=== PATIENT | female | born 1980 | race Caucasian/White ===

== ENCOUNTER → 2017-12-13 | Outpatient (CLI) | payer OTHER ==
[2017-12-13 09:10] LABS: Basophils # (A) 0.1 k/uL (0-0.2); Basophils % (A) 1 %; Eosinophils # (A) 0.2 k/uL (0-0.7); Eosinophils % (A) 2 %; HCT 41.4 % (34.0-46.0); HGB 13.5 gm/dL (11.4-16.0); Lymphocytes # (A) 1.5 k/uL (1.0-4.8); Lymphocytes % (A) 19 %; MCH 28.5 pg (25.0-35.0); MCHC 32.6 g/dL (31.0-37.0); MCV 87.4 fL (80.0-100.0); Mean Platelet Volume 7.3; Monocytes # (A) 0.4 k/uL (0-1.0); Monocytes % (A) 5 %; Neutrophils # (A) 5.8 k/uL (1.3-7.7); Neutrophils % (A) 72 %; Platelet Count 256 k/uL (150-450); RBC 4.73 m/uL (3.80-5.40); RDW 13.1 % (11.5-15.5)
[2017-12-13 17:08] LABS: ALT 20 U/L (8-44); AST 22 U/L (13-35); Albumin/Globulin Ratio 2.15 (1.20-2.10); Alkaline Phosphatase 58 U/L (41-126); Calcium 9.7 mg/dL (8.7-10.3); Carbon Dioxide 29.4 mmol/L (21.6-31.8); Chloride 104 mmol/L (96-109); Cholesterol 161 mg/dL (0-200); Glucose 88 mg/dL (70-110); Sodium 139 mmol/L (135-145); Total Bilirubin 0.4 mg/dL (0.3-1.2); Total Protein 6.3 g/dL (6.2-8.2); Triglycerides <50.0 mg/dL (0.0-149.0); VLDL Calculation 9.98 mg/dL (5.00-40.00)
[2017-12-13 20:10] LABS: Hemoglobin A1C 5.9 % (4.0-6.0)
== END ==
LOC: LABWHC1 08:44
PROVIDERS: ATTEND Family Medicine
DX: Z00.00 Encounter for general adult medical examination without abnormal findings (principal); F32.9 Major depressive disorder, single episode, unspecified; E66.01 Morbid (severe) obesity due to excess calories; R20.2 Paresthesia of skin; Z68.41 Body mass index [BMI] 40.0-44.9, adult
CPT/HCPCS: 36415; 80053; 80061; 82607; 83036; 83655; 84443; 85025

== ENCOUNTER → 2018-02-23 | Outpatient (CLI) | payer OTHER ==
--- NOTE | 2018-02-23 19:24 | MR ---
MR brain without contrast HISTORY: Numbness in arms and hands, paresthesia skin Multiplanar multisequence imaging through the brain Patient refused contrast material. Fast brain protocol due to patient's claustrophobia. There is no restricted diffusion. Mild asymmetry in the lateral ventricles is felt likely to be anabel l variant. Corpus callosum, pituitary, cervical medullary junction are within normal limits. Approxim ately 3-5 hyperintensities are present within the deep white matter on inversion recovery T2-weighted sequences, the largest on axial image 16 in the right frontal lobe measures approximately 3 to 4 mm. There is no hemorrhage or hydrocephalus. Orbits show symmetric appearance. There are normal vascular flow voids. Inflammatory changes are present in the left maxillary sinus. Inflammatory change also p resent in the right mastoid air cells. IMPRESSION: Nonspecific foci of demyelination in the white matter, consider hypertension, migraine he adaches, vasculitis. Nonspecific inflammatory change right mastoid air cells, maxillary sinus. Limita tions as described.
== END ==
LOC: RADMRIMAIN 18:12
PROVIDERS: ATTEND Psychiatry & Neurology Neurology
DX: R90.89 Other abnormal findings on diagnostic imaging of central nervous system (principal); R20.2 Paresthesia of skin
CPT/HCPCS: 70551

== ENCOUNTER → 2018-05-06 | Outpatient (CLI) | payer OTHER ==
[2018-05-06 17:37] LABS: Basophils # (A) 0.1 k/uL (0-0.2); Basophils % (A) 1 %; Eosinophils # (A) 0.2 k/uL (0-0.7); Eosinophils % (A) 2 %; HCT 40.5 % (34.0-46.0); Lymphocytes # (A) 2.2 k/uL (1.0-4.8); Lymphocytes % (A) 21 %; MCH 28.3 pg (25.0-35.0); MCHC 32.1 g/dL (31.0-37.0); Mean Platelet Volume 7.2; Monocytes # (A) 0.6 k/uL (0-1.0); Monocytes % (A) 5 %; Neutrophils # (A) 7.3 k/uL (1.3-7.7); Neutrophils % (A) 70 %; Platelet Count 306 k/uL (150-450); RDW 13.8 % (11.5-15.5); WBC 10.5 k/uL (3.8-10.6)
[2018-05-06 17:39] LABS: Appearance,Urine Clear (Clear); Bilirubin,Urine Negative (Negative); Blood,Urine Negative (Negative); Color,Urine Yellow; Glucose,Urine (UA) Negative (Negative); Ketones,Urine Negative (Negative); Leukocyte Esterase,Urine Negative (Negative); Nitrite,Urine Negative (Negative); Protein,Urine Negative (Negative); Specific Gravity,Urine 1.019 (1.001-1.035); Urobilinogen,Urine <2.0 mg/dL (<2.0)
[2018-05-06 17:42] LABS: Anion Gap 7 mmol/L; Blood Urea Nitrogen 13 mg/dL (7-17); Calcium 9.6 mg/dL (8.4-10.2); Carbon Dioxide 28 mmol/L (22-30); Chloride 105 mmol/L (98-107); Glucose 82 mg/dL (74-99); Potassium 4.4 mmol/L (3.5-5.1); Sodium 140 mmol/L (137-145)
== END | disposition home or self-care (01) ==
LOC: LABPAT 15:55
PROVIDERS: ATTEND Urology
DX: Z01.812 Encounter for preprocedural laboratory examination (principal); N39.3 Stress incontinence (female) (male); R35.0 Frequency of micturition; Z79.899 Other long term (current) drug therapy
CPT/HCPCS: 80048; 81003; 85025; 87086

== ENCOUNTER 2018-05-13 08:54 | Day surgery (SDC) | payer OTHER ==
--- NOTE | 2018-05-12 21:21 | P.GSHP ---
History of Present Illness H&P Date: 05/12/18 38 yo female sent to me by Dr Montana for evaluation of a several year history of incontinence The incontinence is mixed with a predominant stress component She classically leaks with cough , lift sneeze and activity. She kleaked on examination with valsalva. Her uds a smaller than normal bladder capacity and lpp of 111 and 136 cm h2o. We discussed treatment options. We have decided on TOT. The risks and complications including the mesh controversy have been discussed She comes for TOT - Constitutional Constitutional: Denies chills, Denies fever - EENT Eyes: denies blurred vision, denies pain Ears, nose, mouth and throat: Denies headache, Denies sore throat - Cardiovascular Cardiovascular: Denies chest pain, Denies shortness of breath - Respiratory Respiratory: Denies cough, Denies 7 - Gastrointestinal Gastrointestinal: Denies abdominal pain, Denies diarrhea, Denies nausea, Denies vomiting - Genitourinary (Female) Genitourinary: Denies dysuria, Denies hematuria - Genitourinary (Male) Genitourinary: Denies dysuria, Denies hematuria - Musculoskeletal Musculoskeletal: Denies myalgias - Integumentary Integumentary: Denies pruritus, Denies rash - Neurological Neurological: Denies numbness, Denies weakness - Psychiatric Psychiatric: Denies anxiety, Denies depression - Endocrine Endocrine: Denies fatigue, Denies weight change Past Medical History Past Medical History: Deep Vein Thrombosis (DVT), Neurologic Disorder, Sleep Apnea/CPAP/BIPAP Additional Past Medical History / Comment(s): shima DVT, varicose veins, uses cpap, urinary leakage,rt arm carpal tunnel History of Any Multi-Drug Resistant Organisms: None Reported Past Surgical History: Cholecystectomy, Orthopedic Surgery, Tubal Ligation Additional Past Surgical History / Comment(s): rt knee surgery for torn meniscus Additional Past Anesthesia/Blood Transfusion Reaction / Comment(s): lt leg goes numb after anesthesia Smoking Status: Current every day smoker - Past Family History Mother Family Medical History: No Reported History Medications and Allergies Home Medications Medication Instructions Recorded Confirmed Type FLUoxetine HCL [PROzac] 10 mg PO DAILY 05/05/18 05/05/18 History Allergies Allergy/AdvReac Type Severity Reaction Status Date / Time No Known Allergies Allergy Verified 05/05/18 14:32 Surgical - Exam - General well developed, well nourished, no distress - Eyes PERRL - ENT no hearing loss - Neck trachea midline - Respiratory normal respiratory effort - Cardiovascular Rhythm: regular - Abdomen Abdomen: soft, non tender - Genitourinary positive urethral hypermobility, positive riley test normal external genitalia, normal perineum - Integumentary no rash, no growths - Neurologic normal coordination, normal sensation - Musculoskeletal normal gait, normal posture - Psychiatric oriented to time, oriented to person, oriented to place, speech is normal, memory intact Assessment and Plan Assessment: Impression: JUSTEN, urinary urgency Plan: TOT with cystoscopy
[~2018-05-13 08:54] MED LIST: ceFAZolin 1,000 MG in DEXTROSE/WATER 1 50ML.BAG IV ONE
[2018-05-13] MEDS ORDERED: LIDOCAINE 1% 20 ML VIAL (10MG/ML) FOR IV START INTRADERMA ONE (09:35)
[2018-05-13] MEDS ORDERED: LACTATED RINGERS 1,000 ML IV ONE (09:35)
[2018-05-13] MEDS ORDERED: ONDANSETRON 4 MG/2 ML VIAL IVP ONE (09:45)
[2018-05-13] MEDS ORDERED: DEXAMETHASONE SOD PHOSPHATE 10 MG/ML 1 ML VIAL IV ONE (09:46)
[2018-05-13] MEDS ORDERED: PROPOFOL 10 MG/ML 20 ML VIAL IV ONE (11:09)
[2018-05-13] MEDS ORDERED: fentaNYL (PF) 50 MCG/ML 2 ML AMP ONE (11:09)
[2018-05-13] MEDS ORDERED: MIDAZOLAM 2 MG/2 ML VIAL ONE (11:09)
[2018-05-13] MEDS ORDERED: SUCCINYLCHOLINE CHLORIDE 100 MG/5 ML SYR IV ONE (11:09)
[2018-05-13] MEDS ORDERED: LIDOCAINE 1% INJ 10MG/ML (20 ML MDV) ONE (11:09)
[2018-05-13] MEDS ORDERED: BACITRACIN 500 UNIT/GM OINT 28.4 GM TUBE TOPICAL ONE (11:35)
[2018-05-13] MEDS ORDERED: VASOPRESSIN 20 UNIT/ML 1 ML VIAL SQ ONE (11:35)
[2018-05-13] MEDS ORDERED: GENTAMICIN 80 MG in SODIUM CHLORIDE 0.9% 500 ML 500 ML IRRIGATION ONE (11:39)
[2018-05-13] MEDS ORDERED: ONDANSETRON 4 MG/2 ML VIAL IVP PRN (12:08)
--- NOTE | 2018-05-13 12:29 | P.OP ---
Date of Procedure: 05/13/18 Preoperative Diagnosis: stress urinary incontinence Postoperative Diagnosis: stress urinary incontinence Procedure(s) Performed: trans obturator tape with cystoscopy Anesthesia: GRUPO Surgeon: Nam Verduzco Estimated Blood Loss (ml): 100 Pathology: none sent Condition: stable Disposition: PACU Indications for Procedure: The patient 38 female with stress urinary incontinence who comes for TOT The risks and complication have been discussed. Description of Procedure: The patient is brought to the operating and was given a general anesthetic. She was placed in lithotomy position with a sterile prep and drape. The labia are sewn laterally with 2-0 silk. A brantley was placed steriley . A vaginal specula was placed. The anterior vaginal mucosa is elevated off the submucosa with 20mcg of pitressin in 200 mL of saline. A midline suburethral incision is made. I dissect lateral the bladder neck bilaterally. I then make incisions in the inguinal crease at the level of the clitoris bilaterally. I passed the trans- obturator introducers through this incision into the obturator foramen around the issue pubic ramus into the vaginal space bilaterally making sure not to buttonhole the vagina or injure the bladder. The Brantley is removed. Cystoscopy Foroblique lens and 23-Persian sheath was performed the urethra and bladder neck are normal is no evidence of either introducer into the bladder. I then attached the grafted introducers and pull the graft back through the obturator foramen. The graft sits in the mid urethra nicely. The redundant achieving is removed. Vaginal mucosa was closed with a running 3-0 Vicryl. The redundant sheathing at the inguinal incision is removed as is the redundant graft. The graft is an she's begins inguinal incisions are then closed with 3-0 Vicryl. I irrigate the catheter irrigates freely and clearly. Vaginal packing is placed. The labial stitches are closed with 4-0 Vicryl. The patient is awake and returned recovery room good condition. Blood loss is approximately 100 mL. The urine is clear upon arrival to recovery room. She tolerated procedure well. She'll be placed in the hospital overnight.
[2018-05-13 14:05] VITALS: BMI 47.8
[2018-05-13] MEDS: KETOROLAC 30 MG/ML 1 ML VIAL IVP PRN (16:35)
[2018-05-13] MEDS: DEXTROSE 5%-0.45% NACL 1,000 ML IV SCH (16:38)
[2018-05-14] MEDS: KETOROLAC 30 MG/ML 1 ML VIAL IVP PRN ×2 (02:45→09:31)
[2018-05-14] MEDS: DEXTROSE 5%-0.45% NACL 1,000 ML IV SCH (03:06)
[2018-05-14] MEDS: HYDROcodone/APAP 5-325MG 1 EACH TAB PO PRN ×2 (03:53→09:32)
[2018-05-14] MEDS ORDERED: FLUoxetine HCL 10 MG CAP PO SCH (09:00)
[2018-05-14 12:41] VITALS: BP 102/65; PULSE 68; RESP 14; TEMP 97.8
--- NOTE | 2018-05-14 12:45 | P.DS ---
Providers Attending physician: Nam Verduzco Primary care physician: Flori Montana MD Hospital Course: This pleasant 38-year-old female who was admitted to the hospital 05/13/2018 for a trans-obturator tape with cystoscopy for stress incontinence. Surgery was uneventful. Her postoperative care was uneventful. The packing has been removed. Catheters been removed she is voiding without difficulty. She is ambulating. She has a minimal amount of left groin discomfort. Her abdomen is soft. Postoperative instructions in the given. Diet is regular. Activities Limited. She'll follow-up in the office in one week. Condition is good. Patient Condition at Discharge: Good Plan - Discharge Summary Discharge Rx Participant: No New Discharge Prescriptions: No Action FLUoxetine HCL [PROzac] 10 mg PO DAILY Discharge Medication List FLUoxetine HCL [PROzac] 10 mg PO DAILY 05/05/18 [History] Follow up Appointment(s)/Referral(s): Nam Verduzco MD [STAFF PHYSICIAN] - 1 Week Discharge Disposition: HOME SELF-CARE
== END 2018-05-14 13:16 | disposition home or self-care (01) ==
LOC: OR 08:54 → 6PED 12:00 → OR 05-14 13:16
PROVIDERS: ATTEND Urology
DX: N39.3 Stress incontinence (female) (male) (principal); Z86.718 Personal history of other venous thrombosis and embolism; G47.33 Obstructive sleep apnea (adult) (pediatric); Z99.89 Dependence on other enabling machines and devices; K21.9 Gastro-esophageal reflux disease without esophagitis; F17.200 Nicotine dependence, unspecified, uncomplicated; Z79.899 Other long term (current) drug therapy
CPT/HCPCS: 81025; 57288; C1771; J2250; J1580; J1100; J2405; J2001; J3010; J1885 ×2; J0690; J0330; J2704

== ENCOUNTER 2018-05-25 18:33 | Emergency (ER) | payer OTHER ==
[2018-05-25 19:19] VITALS: TEMP 97.7
[2018-05-25 19:44] LABS: Basophils % (A) 0 %; Eosinophils # (A) 0.3 k/uL (0-0.7); Eosinophils % (A) 3 %; HCT 36.8 % (34.0-46.0); HGB 11.8 gm/dL (11.4-16.0); Lymphocytes # (A) 2.2 k/uL (1.0-4.8); Lymphocytes % (A) 21 %; MCH 27.3 pg (25.0-35.0); MCHC 32.1 g/dL (31.0-37.0); MCV 85.1 fL (80.0-100.0); Monocytes # (A) 0.4 k/uL (0-1.0); Monocytes % (A) 4 %; Neutrophils # (A) 7.2 k/uL (1.3-7.7); Neutrophils % (A) 70 %; Platelet Count 238 k/uL (150-450); RBC 4.32 m/uL (3.80-5.40); RDW 13.2 % (11.5-15.5); WBC 10.3 k/uL (3.8-10.6)
--- NOTE | 2018-05-25 19:45 | ED ---
General Adult HPI - General Source: patient Mode of arrival: ambulatory Limitations: no limitations <Sarah Pierce - Last Filed: 05/26/18 01:43> <Rebeca Ly - Last Filed: 05/26/18 07:33> - General Chief complaint: Shortness of Breath Stated complaint: NIKITA Time Seen by Provider: 05/25/18 19:03 - History of Present Illness Initial comments: 46-year-old female patient with past medical history significant for DVT with recent bladder sling surgery on 05/13/2018 presents to the emergency department today for evaluation of shortness of breath. Patient states she has been feeling like she is unable to catch her breath since having the surgery on the third. Patient states that she feels the discomfort to the mid upper back. She denies any cough or sputum production. Denies any fevers or chills with this. Patient denies any chest pain, tightness, or heaviness. States shortness of breath worsens with activity. She denies any calf or leg pain. Denies any leg swelling. Denies any history of COPD or asthma. Patient denies any recent rash, abdominal pain, nausea, vomiting, diarrhea, constipation, numbness, tingling, dizziness, weakness, hematuria, dysuria, urinary urgency, urinary frequency, headache, visual changes, or any other complaints. (Sarah Pierce) - Related Data Home Medications Medication Instructions Recorded Confirmed FLUoxetine HCL [PROzac] 10 mg PO DAILY 05/05/18 05/13/18 Previous Rx's Medication Instructions Recorded predniSONE 50 mg PO DAILY #5 tablet 05/25/18 Allergies Allergy/AdvReac Type Severity Reaction Status Date / Time No Known Allergies Allergy Verified 05/25/18 18:44 Review of Systems ROS Other: All systems not noted in ROS Statement are negative. <Sarah Pierce - Last Filed: 05/26/18 01:43> ROS Other: All systems not noted in ROS Statement are negative. <Rebeca Ly - Last Filed: 05/26/18 07:33> ROS Statement: Those systems with pertinent positive or pertinent negative responses have been documented in the HPI. Past Medical History Past Medical History: Deep Vein Thrombosis (DVT), Neurologic Disorder, Sleep Apnea/CPAP/BIPAP Additional Past Medical History / Comment(s): shima DVT, varicose veins, uses cpap, urinary leakage,rt arm carpal tunnel History of Any Multi-Drug Resistant Organisms: None Reported Past Surgical History: Cholecystectomy, Orthopedic Surgery, Tubal Ligation Additional Past Surgical History / Comment(s): rt knee surgery for torn meniscus, bladder suspension Additional Past Anesthesia/Blood Transfusion Reaction / Comment(s): lt leg goes numb after anesthesia Past Psychological History: Depression Smoking Status: Former smoker Past Alcohol Use History: Rare Past Drug Use History: None Reported - Past Family History Mother Family Medical History: No Reported History <Sarah Pierce - Last Filed: 05/26/18 01:43> General Exam Limitations: no limitations General appearance: alert, in no apparent distress, other (Physical well-deve loped, well-nourished adult female patient in no acute distress. Vital signs upon presentation are temperature 98.4F, pulse 70, respirations 18, blood pressure 150/63, pulse ox 98% on room air.) Eye exam: Present: normal appearance, PERRL, EOMI. Absent: scleral icterus, c onjunctival injection, periorbital swelling ENT exam: Present: normal exam, normal oropharynx, mucous membranes moist Respiratory exam: Present: normal lung sounds bilaterally. Absent: respiratory distress, wheezes, rales, rhonchi, stridor Cardiovascular Exam: Present: regular rate, normal rhythm, normal heart sounds. Absent: systolic murmur, diastolic murmur, rubs, gallop, clicks GI/Abdominal exam: Present: soft, normal bowel sounds. Absent: distended, tenderness, guarding, rebound, rigid Extremities exam: Present: normal inspection, full ROM, normal capillary refill. Absent: tenderness, pedal edema, joint swelling, calf tenderness Neurological exam: Present: alert, oriented X3, CN II-XII intact Psychiatric exam: Present: normal affect, normal mood Skin exam: Present: warm, dry, intact, normal color. Absent: rash <Sarah Pierce - Last Filed: 05/26/18 01:43> Course Vital Signs 05/25/18 05/25/18 05/25/18 18:41 19:18 20:27 Temperature 98.4 F 97.7 F Pulse Rate 70 71 80 Respiratory 18 18 18 Rate Blood Pressure 115/63 118/56 109/54 O2 Sat by Pulse 98 98 97 Oximetry 05/25/18 21:32 Temperature 97.7 F Pulse Rate 78 Respiratory 17 Rate Blood Pressure 106/57 O2 Sat by Pulse 98 Oximetry EKG Findings - EKG Comments: EKG Findings:: EKG obtained in 192 shows normal sinus rhythm with a ventricular rate of 71, NJ interval 144, QRS duration 78, QTC 400, QTC 434. No evidence of ST elevation or depression. <Sarah Pierce - Last Filed: 05/26/18 01:43> Medical Decision Making - Lab Data Result diagrams: 05/25/18 19:30 05/25/18 19:30 - Radiology Data Radiology results: report reviewed, image reviewed <Sarah Pierce - Last Filed: 05/26/18 01:43> - Lab Data Result diagrams: 05/25/18 19:30 05/25/18 19:30 <Rebeca Ly - Last Filed: 05/26/18 07:33> - Medical Decision Making 38-year-old female patient presents to the emergency department today for evaluation of shortness of breath. Patient underwent bladder sling surgery on 05/13/2018 and has been feeling short of breath ever since. Patient states it feels like she is not getting enough air. Lungs are clear to auscultation with good air movement. Patient's respirations are nonlabored. Vital signs are stable with satisfactory oxygen saturation. Chest x-ray showed no acute cardiopulmonary process. Labs reviewed and were unremarkable, BNP and d-dimer were negative. EKG showed normal sinus rhythm. I did discuss findings and results with the patient. We will give steroids for decreasing inflammation after intubation. She is instructed to follow-up with her primary care physician for recheck in 1-2 days. Return parameters were discussed in detail. She verbalizes understanding and agrees with this plan. (Sarah Pierce) I was available for consultation in the emergency department. The history and physical exam were done by the midlevel provider. I was consulted for this patient's care. I reviewed the case with the midlevel provider and based on their presentation of the patient, I agree with the assessment, medical decision making and plan of care as documented. (Rebeca Ly) - Lab Data Lab Results 05/25/18 05/25/18 05/25/18 Range/Units 19:30 19:30 19:30 WBC 10.3 (3.8-10.6) k/uL RBC 4.32 (3.80-5.40) m/uL Hgb 11.8 (11.4-16.0) gm/dL Hct 36.8 (34.0-46.0) % MCV 85.1 (80.0-100.0) fL MCH 27.3 (25.0-35.0) pg MCHC 32.1 (31.0-37.0) g/dL RDW 13.2 (11.5-15.5) % Plt Count 238 (150-450) k/uL Neutrophils % 70 % Lymphocytes % 21 % Monocytes % 4 % Eosinophils % 3 % Basophils % 0 % Neutrophils # 7.2 (1.3-7.7) k/uL Lymphocytes # 2.2 (1.0-4.8) k/uL Monocytes # 0.4 (0-1.0) k/uL Eosinophils # 0.3 (0-0.7) k/uL Basophils # 0.0 (0-0.2) k/uL PT 9.5 (9.0-12.0) sec INR 0.9 (<1.2) APTT 22.3 (22.0-30.0) sec D-Dimer 0.49 (<0.60) mg/L FEU Sodium 139 (137-145) mmol/L Potassium 4.2 (3.5-5.1) mmol/L Chloride 105 (98-107) mmol/L Carbon Dioxide 27 (22-30) mmol/L Anion Gap 7 mmol/L BUN 18 H (7-17) mg/dL Creatinine 0.79 (0.52-1.04) mg/dL Est GFR (CKD-EPI)AfAm >90 (>60 ml/min/1.73 sqM) Est GFR (CKD-EPI)NonAf >90 (>60 ml/min/1.73 sqM) Glucose 149 H (74-99) mg/dL Calcium 9.5 (8.4-10.2) mg/dL Total Bilirubin 0.3 (0.2-1.3) mg/dL AST 15 (14-36) U/L ALT 21 (9-52) U/L Alkaline Phosphatase 60 (38-126) U/L Troponin I (0.000-0.034) ng/mL NT-Pro-B Natriuret Pep pg/mL Total Protein 6.5 (6.3-8.2) g/dL Albumin 3.9 (3.5-5.0) g/dL 05/25/18 05/25/18 Range/Units 19:30 19:30 WBC (3.8-10.6) k/uL RBC (3.80-5.40) m/uL Hgb (11.4-16.0) gm/dL Hct (34.0-46.0) % MCV (80.0-100.0) fL MCH (25.0-35.0) pg MCHC (31.0-37.0) g/dL RDW (11.5-15.5) % Plt Count (150-450) k/uL Neutrophils % % Lymphocytes % % Monocytes % % Eosinophils % % Basophils % % Neutrophils # (1.3-7.7) k/uL Lymphocytes # (1.0-4.8) k/uL Monocytes # (0-1.0) k/uL Eosinophils # (0-0.7) k/uL Basophils # (0-0.2) k/uL PT (9.0-12.0) sec INR (<1.2) APTT (22.0-30.0) sec D-Dimer (<0.60) mg/L FEU Sodium (137-145) mmol/L Potassium (3.5-5.1) mmol/L Chloride (98-107) mmol/L Carbon Dioxide (22-30) mmol/L Anion Gap mmol/L BUN (7-17) mg/dL Creatinine (0.52-1.04) mg/dL Est GFR (CKD-EPI)AfAm (>60 ml/min/1.73 sqM) Est GFR (CKD-EPI)NonAf (>60 ml/min/1.73 sqM) Glucose (74-99) mg/dL Calcium (8.4-10.2) mg/dL Total Bilirubin (0.2-1.3) mg/dL AST (14-36) U/L ALT (9-52) U/L Alkaline Phosphatase (38-126) U/L Troponin I <0.012 (0.000-0.034) ng/mL NT-Pro-B Natriuret Pep 27 pg/mL Total Protein (6.3-8.2) g/dL Albumin (3.5-5.0) g/dL - Radiology Data Two-view x-ray of the chest is obtained. Report was reviewed in its entirety. Impression by Dr. Frank shows no suspicious acute cardiopulmonary process. (Sarah Pierce) Disposition Is patient prescribed a controlled substance at d/c from ED?: No Time of Disposition: 21:25 <Sarah Pierce - Last Filed: 05/26/18 01:43> <Rebeca Ly - Last Filed: 05/26/18 07:33> Clinical Impression: Shortness of breath Disposition: HOME SELF-CARE Condition: Good Instructions (If sedation given, give patient instructions): Shortness of Breath (ED) Additional Instructions: Follow-up with the primary care physician for recheck in 1-2 days. Use medications as directed. Return to the emergency department immediately for any new, worsening, or concerning symptoms. Prescriptions: predniSONE 50 mg PO DAILY #5 tablet Referrals: Flori Montana MD [Primary Care Provider] - 1-2 days
[2018-05-25 19:52] LABS: ALT 21 U/L (9-52); AST 15 U/L (14-36); Albumin 3.9 g/dL (3.5-5.0); Alkaline Phosphatase 60 U/L (38-126); Anion Gap 7 mmol/L; Blood Urea Nitrogen 18 mg/dL (7-17); Calcium 9.5 mg/dL (8.4-10.2); Carbon Dioxide 27 mmol/L (22-30); Chloride 105 mmol/L (98-107); Glucose 149 mg/dL (74-99); Potassium 4.2 mmol/L (3.5-5.1); Sodium 139 mmol/L (137-145); Total Bilirubin 0.3 mg/dL (0.2-1.3); Total Protein 6.5 g/dL (6.3-8.2)
[2018-05-25 20:05] LABS: D-Dimer 0.49 mg/L FEU (<0.60); INR 0.9 (<1.2); Partial Thromboplastin Time 22.3 sec (22.0-30.0); Prothrombin Time 9.5 sec (9.0-12.0)
--- NOTE | 2018-05-25 20:51 | XR ---
EXAMINATION TYPE: XR chest 2V DATE OF EXAM: 05/25/2018 COMPARISON: NONE HISTORY: History of recent bladder surgery May 13 with increasing shortness of breath. TECHNIQUE: Frontal and lateral views of the chest are obtained. FINDINGS: Overlying EKG leads are present. There is no focal air space opacity, pleural effusion, or pneumothorax seen. The cardiac silhouette size is within normal limits. The osseous structures ar e intact. Cholecystectomy clips are noted on lateral view. IMPRESSION: No suspicious acute cardiopulmonary process.
[2018-05-25 21:33] VITALS: BP 106/57; PULSE 78; RESP 17
== END 2018-05-25 21:34 | disposition home or self-care (01) ==
LOC: EC 18:33
DX: R06.02 Shortness of breath (principal); Z98.890 Other specified postprocedural states; G47.30 Sleep apnea, unspecified; F32.9 Major depressive disorder, single episode, unspecified; Z79.899 Other long term (current) drug therapy; Z86.718 Personal history of other venous thrombosis and embolism; Z87.891 Personal history of nicotine dependence
CPT/HCPCS: 36415; 71046; 80053; 83880; 84484; 85025; 85379; 85610; 85730; 93005; 99285

== ENCOUNTER → 2018-06-04 | Outpatient (CLI) | payer OTHER ==
--- NOTE | 2018-06-04 18:41 | PN ---
PROGRESS NOTE DATE OF SERVICE: 06/04/2018 This patient is a 38-year-old lady who has been [facility] for treatment of obstructive sleep apnea-hypopnea syndrome. Recently the patient had a diagnostic polysomnogram which showed severe sleep apnea and then CPAP titration was done for correction of respiratory abnormalities. Subsequently the patient received her CPAP unit. I discussed results of the sleep studies with the patient in detail. She is able to use CPAP equipment every night. She does not snore with the CPAP. She feels better during the day. [place] Sleepiness Scale today is 12; she still feels sometimes sleepiness, which depends on the number of hours of her sleep during the previous night. But generally her sleepiness is less. I checked her CPAP unit. Usage is 100% of nights for more than 4 hours. Average usage is 7.3 hours. Leak is 20 L/minute, which is borderline. Pressure is in the range of 8 to 19, and most of the time the pressure is 14.6. Apnea-hypopnea index is only 1.2, which is absolutely perfect. MEDICATION: Fluoxetine. PHYSICAL EXAMINATION: GENERAL: A pleasant patient in no distress. VITAL SIGNS: BP 136/86, HR 76, RR 16, weight 290, temperature 97.6, oxygen saturation on room air 98%. HEENT: PERRLA, EOMI. Evaluation of oropharynx showed tongue protrudes midline. Low position of soft palate. Mallampati IV. NECK: Supple. No JVD. Thyroid is not palpable. LUNGS: Clear to percussion and to auscultation. Good air exchange. No wheezing or rhonchi. HEART: S1, S2 regular. No murmurs, gallops or rubs. ABDOMEN: Obese. EXTREMITIES: No clubbing or cyanosis. ELECTRIC FRYING PAN REPAIRER: Awake, alert, and oriented X3. Cranial nerves 2 to 7 intact. There is no fasciculation or atrophy. noted. No focal deficits observed. IMPRESSION: 1. Severe obstructive sleep apnea-hypopnea syndrome, apnea-hypopnea index 81.7 with oxygen saturation to 70.9%, fully controlled with CPAP. Patient demonstrated 100% compliance with treatment, benefitting from treatment. 2. Obesity. 3. Status post cholecystectomy. 4. Status post knee surgery for meniscus problems. 5. Status post tubal ligation. PLAN: 1. Patient will continue to use CPAP equipment every night for the whole night. 2. Losing weight. 3. Sleep hygiene with regular time in bed for at least 8 hours. 4. No driving if feeling any sleepiness. 5. We will maintain all necessary prescriptions for CPAP supplies, including mask, tube, filters. Thank you very much for allowing me to participate in the management of your patient. Sincerely, Kojo Gomez MD, PhD, FAASM Diplomat of [employer] [employer] [facility] [place] MMODL / NELLYN: [phone] /
== END ==
LOC: SLEEP 15:58
PROVIDERS: ATTEND Internal Medicine
DX: G47.33 Obstructive sleep apnea (adult) (pediatric) (principal); E66.9 Obesity, unspecified; Z90.49 Acquired absence of other specified parts of digestive tract; Z98.890 Other specified postprocedural states; Z98.51 Tubal ligation status; Z99.89 Dependence on other enabling machines and devices; Z79.899 Other long term (current) drug therapy

== ENCOUNTER → 2018-06-09 | Outpatient (CLI) | payer OTHER ==
--- NOTE | 2018-06-09 09:48 | CT ---
EXAMINATION TYPE: CT angio chest DATE OF EXAM: 06/09/2018 COMPARISON: Chest radiograph 05/25/2018 HISTORY: 38-year-old female Shortness of breath, dyspnea since bladder surgery last Friday TECHNIQUE: Contiguous axial scanning of the chest performed with IV Contrast, patient injected with 1 00 mL of Isovue 300. Coronal/sagittal MIP reconstructions performed. CT DLP: 1520 mGycm Automated exposure control for dose reduction was used. FINDINGS: Heart upper limits of normal in size without pericardial effusion. No flattening of the interventricu lar septum or reflux of contrast hepatic veins. Aorta normal caliber with bovine configuration to the aortic arch. Borderline optimal opacification of the pulmonary arterial system. Exam is limited due to mild respir atory motion artifact. No definite pulmonary embolus is seen. No thoracic lymphadenopathy. Mild bronchial wall thickening is demonstrated and mild emphysematous change. 7 mm subpleural pulmonary nodule posterior left upper lobe and a couple 3 mm pulmonary nodules left u pper lobe, axial image 69 and lateral right middle lobe, axial image 126. Some scattered strandy areas of atelectasis are present. No consolidation or pleural effusion. Mixing artifact in the main portal vein. Cholecystectomy clips are present. Bones: No osseous destructive process. IMPRESSION: 1. MILD BREATHING ARTIFACT. NO DEFINITE PULMONARY EMBOLUS. 2. COPD WITH MILD EMPHYSEMA. CORRELATE FOR SMOKING HISTORY. 3. MILD BRONCHIAL WALL THICKENING COULD REFLECT BRONCHITIS OR ASTHMA. SOME STRANDY AREAS OF ATELECTAS IS ARE PRESENT. 4. A FEW PULMONARY NODULES, LARGEST MEASURING 7 MM. [address] FOLLOW-UP CT RECOMMENDED TO REASSESS.
== END | disposition home or self-care (01) ==
LOC: RADCTMAIN 08:39
PROVIDERS: ATTEND Family Medicine
DX: J43.9 Emphysema, unspecified (principal); R91.8 Other nonspecific abnormal finding of lung field; Z86.718 Personal history of other venous thrombosis and embolism
CPT/HCPCS: 71275; Q9967

== ENCOUNTER → 2018-07-27 | Outpatient (CLI) | payer OTHER | END | disposition home or self-care (01) | LOC: LABWHC1 13:44 | PROVIDERS: ATTEND Internal Medicine Critical Care Medicine | DX: J45.909 Unspecified asthma, uncomplicated (principal) | CPT/HCPCS: 36415; 82785; 85008 ==

== ENCOUNTER → 2018-12-14 | Outpatient (CLI) | payer OTHER ==
--- NOTE | 2018-12-14 10:44 | CT ---
EXAMINATION TYPE: CT chest w con DATE OF EXAM: 12/14/2018 COMPARISON: 06/09/2018 HISTORY: 38-year-old female with dyspnea, tobacco use, Pulmonary Nodules TECHNIQUE: Contiguous axial scanning of the chest after the administration of 100 mL of Isovue 300. Coronal/sagittal reconstructions performed. CT DLP: 804mGycm. Automatic exposure control utilized for a dose reduction. FINDINGS: Heart normal size without pericardial effusion. Aorta normal caliber with conventional vessel branching anatomy. No thoracic lymphadenopathy by CT size criteria. 7 mm peripheral left midlung pulmonary nodule, axial image 23 is stable over the course of 6 months. Additional 6-12 month follow-up exam is recommended. Tiny 2 to 3 mm pulmonary nodule just anteriorly in the lingula also remain stable. No consolidation or pleural effusion. Suspect underlying fatty infiltration of the liver. Status post cholecystectomy. Bones: No osseous destructive process. IMPRESSION: 1. A 7 mm left midlung pulmonary nodule remains stable for 6 months. Continued follow-up with a 12-18 month follow-up exam is recommended. 2. No acute pulmonary process.
== END | disposition home or self-care (01) ==
LOC: RADCTMAIN 08:54
PROVIDERS: ATTEND Family Medicine
DX: R91.1 Solitary pulmonary nodule (principal); R06.00 Dyspnea, unspecified; Z72.0 Tobacco use
CPT/HCPCS: 71260; Q9967

== ENCOUNTER → 2019-03-25 | Outpatient (CLI) | payer OTHER ==
--- NOTE | 2019-03-25 17:19 | PN ---
PROGRESS NOTE DATE OF SERVICE: 03/25/2019 This patient is a 39-year-old lady who has been followed in Sleep Center for treatment of obstructive sleep apnea-hypopnea syndrome. The patient successfully continues to use her CPAP equipment every night for the whole night without problems related to mask fitting, pressure or humidification. [place] Sleepiness Scale today is 13, which is slightly above normal range. Sometimes she feels sleepiness. I checked her CPAP unit. Range of the pressure is 8 to 19, with average pressure 13.9. For the last 6 months, out of 180 nights the patient used it 180 nights more than 4 hours, with average usage is 7.9 hours per night. Leak is 23 L/minute, which is borderline. Apnea-hypopnea index for the last 6 months is only 1.3, which is totally perfect. MEDICATIONS: Fluoxetine, Singulair. PHYSICAL EXAMINATION: GENERAL: A pleasant lady without distress. VITAL SIGNS: BP 127/64, HR 84, RR 16, height 5 feet 7 inches, weight 297.2, which is about 7 pounds more than during the previous visit about 10 months ago. Temperature 97.9, oxygen saturation at room air 96%. HEENT: PERRLA, EOMI. Evaluation of oropharynx showed tongue protrudes midline. Extremely low position of soft palate. Mallampati IV. NECK: Supple. No JVD. Thyroid is not palpable. LUNGS: Clear to percussion and to auscultation. Good air exchange. No wheezing or rhonchi. HEART: S1, S2 regular. No murmurs, gallops or rubs. ABDOMEN: Obese. EXTREMITIES: No clubbing or cyanosis. CONSERVATION POLICY ANALYST: Awake, alert, and oriented X3. Cranial nerves 2 to 7 intact. There is no fasciculation or atrophy. noted. No focal deficits observed. IMPRESSION: 1. Severe obstructive sleep apnea-hypopnea syndrome; apnea-hypopnea index 81.7 with oxygen desaturation to 70.9%. The patient demonstrated 100% compliance with treatment, respiration under full control with CPAP. 2. Obesity. 3. Status post cholecystectomy. 4. Status post knee surgery for meniscus problems. 5. Status post tubal ligation. PLAN: 1. Patient will continue to use CPAP equipment every night for the whole night with the same regimen of pressure. 2. Patient should get new CPAP supplies; prescriptions for mask, tube, filters. 3. Losing weight. 4. No driving if feeling any sleepiness. Thank you very much for allowing me to participate in the management of your patient. Sincerely, Kojo Gomez MD, PhD, FAASM Diplomat of [employer] [employer] Network Control Supervisor of [facility] [place] MMODL / NELLYN: [id number] /
== END | disposition home or self-care (01) ==
LOC: SLEEP 15:37
PROVIDERS: ATTEND Internal Medicine
DX: G47.33 Obstructive sleep apnea (adult) (pediatric) (principal); E66.9 Obesity, unspecified; Z90.49 Acquired absence of other specified parts of digestive tract; Z98.51 Tubal ligation status; Z96.659 Presence of unspecified artificial knee joint; Z79.899 Other long term (current) drug therapy

== ENCOUNTER 2019-08-04 16:24 | Emergency (ER) | payer OTHER | END 2019-08-04 17:09 | disposition left against medical advice (07) | LOC: EC 16:24 | DX: Z53.21 Procedure and treatment not carried out due to patient leaving prior to being seen by health care provider (principal) | CPT/HCPCS: 99499 ==

== ENCOUNTER → 2019-12-24 | Outpatient (CLI) | payer OTHER ==
--- NOTE | 2019-12-24 12:12 | CT ---
EXAMINATION TYPE: CT chest w con DATE OF EXAM: 12/24/2019 COMPARISON: Prior CT chest 12/14/2018 HISTORY: Lung nodule, chest pain CT DLP: 872.2 mGycm Automated exposure control for dose reduction was used. CONTRAST: CT scan of the chest is performed with IV Contrast, patient injected with 100 mL of Isovue 300. FINDINGS: LUNGS: The lungs are grossly clear, there is no concerning parenchymal mass or nodule identified, lef t upper lobe subpleural nodules are stable. There is no pleural effusion or pneumothorax seen. The tracheobronchial tree is patent. MEDIASTINUM: There are no greater than 1 cm hilar or mediastinal lymph nodes. No pericardial effusi on is seen. AORTA: No additional significant abnormality is seen. OTHER: Patient is post cholecystectomy. Low density within the liver could be due to hepatic steatos is.. IMPRESSION: Stable benign exam.
== END | disposition home or self-care (01) ==
LOC: RADCTMAIN 09:10
PROVIDERS: ATTEND Internal Medicine Critical Care Medicine
DX: R91.1 Solitary pulmonary nodule (principal)
CPT/HCPCS: 71260; Q9967

== ENCOUNTER → 2020-03-23 | Outpatient (CLI) | payer OTHER ==
--- NOTE | 2020-03-24 00:57 | SFUN ---
SLEEP CENTER FOLLOW UP NOTE DATE OF SERVICE: 03/23/2020 40-year-old lady who has been followed in Sleep Center for treatment of obstructive sleep apnea-hypopnea syndrome. Patient continued to use her CPAP equipment every night for the whole night. Normally sleeps well with the machine and feels well during the day. For the last couple weeks, patient actually feels a little bit more tired during the day than usual. [place] Sleepiness Scale today is 13. I checked her CPAP unit. Range of the pressure 8-19 in automatic regimen. Average pressure 13.4 cm of water. Usage is 100% of nights more than 4 hours. Average usage 8.4 hours per night. Leak is 23 L/minute which is borderline. Apnea-hypopnea index is 1.0, which is absolutely perfect. MEDICATIONS: Fluoxetine 20 mg once a day. PHYSICAL EXAM: Patient in no distress BP 145/71, HR 73, RR 15, height 5 feet 7 inches, weight 301.2 pounds, which is 3 pounds more than during the previous visit. BMI 47.1, temperature 98.1 oxygen saturation at room air 97%. Oropharynx: Extremely low position of soft palate, Mallampati 4. NECK: Supple, no JVD. Thyroid is not palpable. LUNGS: Clear to percussion and to auscultation. Good air exchange. No wheezing or rhonchi. HEART: S1, S2 regular. No murmurs, gallops, or rubs. ABDOMEN: Obese. Soft and nontender. Bowel sounds are present. No organomegaly appreciated. EXTREMITIES: No clubbing or cyanosis. COOK SHIP: Awake, alert, and oriented X3. Cranial nerves 2 to 7 intact. There is no fasciculation or atrophy. noted. No focal deficits observed. IMPRESSION: 1. Severe obstructive sleep apnea-hypopnea syndrome. Original HR 81.7 with oxygen desaturation to 70.9%. The patient demonstrated 100% compliance with treatment, normal respiration on CPAP. 2. Obesity. 3. Status post cholecystectomy. 4. Status post knee surgery for meniscus problems. 5. Status post tubal ligation. PLAN: 1. Patient will continue to use PAP equipment every night for the whole night. 2. Sleep hygiene with regular time in bed for at least 7-1/2 to 8 hours. 3. Precautions related to driving. No driving if feeling sleepiness. 4. I will maintain all necessary prescription for PAP supplies including mask, tube, filters. 5. Watching weight. 6. No driving if feeling sleepiness. 7. Follow-up visit in 6 months or earlier if patient has any problems. Thank you very much for allowing me to participate in management of your patient. Sincerely, Kojo Gomez MD, PhD, FAASM Diplomat of [employer] [employer] [employer] Entry Level Management of [facility] [place] MMODL / NELLYN: [phone] /
== END | disposition home or self-care (01) ==
LOC: SLEEP 15:48
PROVIDERS: ATTEND Internal Medicine
DX: G47.33 Obstructive sleep apnea (adult) (pediatric) (principal); E66.9 Obesity, unspecified; Z99.89 Dependence on other enabling machines and devices; Z79.899 Other long term (current) drug therapy; Z90.49 Acquired absence of other specified parts of digestive tract; Z98.890 Other specified postprocedural states; Z98.51 Tubal ligation status

== ENCOUNTER → 2020-03-23 | Outpatient (CLI) | payer OTHER ==
--- NOTE | 2020-03-23 13:34 | US ---
EXAMINATION TYPE: US transvaginal DATE OF EXAM: 03/23/2020 COMPARISON: NONE CLINICAL HISTORY: R10.30 Lower abdominal Pain. TECHNIQUE: . Transvaginal sonographic images of the pelvis were acquired. Date of LMP: 03/03/2020 EXAM MEASUREMENTS: Uterus: 9.3 x 4.7 x 4.7 cm Endometrial Stripe: 0.4 cm Right Ovary: 2.0 x 1.0 x 1.2 cm Left Ovary: 2.2 x 1.8 x 1.4 cm 1. Uterus: Anteverted Nabothian cysts visualized. Heterogeneous. 2.7 x 1.9 x 1.7 isoechoic area vis ualized, possible fibroid 2. Endometrium: wnl 3. Right Ovary: wnl 4. Left Ovary: wnl 5. Bilateral Adnexa: tiny amount of free fluid visualized left adnexa 6. Posterior cul-de-sac: wnl IMPRESSION: 1. Suspected uterine fibroid.
== END | disposition home or self-care (01) ==
LOC: RADUSWWP 12:55
PROVIDERS: ATTEND Family Medicine
DX: R10.30 Lower abdominal pain, unspecified (principal)
CPT/HCPCS: 76830

== ENCOUNTER → 2020-10-09 | Outpatient (CLI) | payer OTHER ==
--- NOTE | 2020-10-09 15:41 | XR ---
EXAMINATION TYPE: XR ankle complete RT DATE OF EXAM: 10/09/2020 COMPARISON: NONE HISTORY: Pain TECHNIQUE: Frontal, lateral and oblique images of the right ankle are obtained. COMPARISON: None. FINDINGS: There is no acute fracture/dislocation evident. The joint spaces appear within normal javier its. The overlying soft tissue appears unremarkable. IMPRESSION: There is no acute fracture or dislocation seen.
--- NOTE | 2020-10-09 15:43 | XR ---
EXAMINATION TYPE: XR foot complete RT DATE OF EXAM: 10/09/2020 CLINICAL HISTORY: pain TECHNIQUE: Frontal, lateral and oblique images of the right foot are obtained. COMPARISON: None. FINDINGS: There is no acute fracture/dislocation evident. The joint spaces appear within normal javier its. The overlying soft tissue appears unremarkable. Large plantar and smaller dorsal calcaneal spur . IMPRESSION: There is no acute fracture or dislocation. ICD 10 NO FRACTURE, INITIAL EVALUATION
== END | disposition home or self-care (01) ==
LOC: RADXRMAIN 15:10
PROVIDERS: ATTEND Family Medicine
DX: M79.671 Pain in right foot (principal)

== ENCOUNTER 2020-10-31 22:59 | Emergency (ER) | payer OTHER ==
[2020-10-31] MEDS ORDERED: IBUPROFEN 400 MG TAB PO STA (23:37)
[2020-11-01 00:05] LABS: Appearance,Urine Clear (Clear); Bilirubin,Urine Negative (Negative); Blood,Urine Negative (Negative); Color,Urine Light Yellow; Glucose,Urine (UA) Negative (Negative); Ketones,Urine Negative (Negative); Leukocyte Esterase,Urine Small (Negative); Mucus,Urine Rare /hpf; Nitrite,Urine Negative (Negative); PH, Urine 7.5 (5.0-8.0); Protein,Urine Negative (Negative); RBC,Urine <1 /hpf (0-5); Specific Gravity,Urine 1.011 (1.001-1.035); Squamous Epithelial Cell,Urine <1 /hpf (0-4); Urobilinogen,Urine <2.0 mg/dL (<2.0); WBC,Urine 1 /hpf (0-5)
--- NOTE | 2020-11-01 01:10 | ED ---
Fever HPI - General Chief Complaint: Fever Stated Complaint: Fever Time Seen by Provider: 10/31/20 23:14 Source: patient Mode of arrival: ambulatory Limitations: no limitations - History of Present Illness Complaint: fever Onset/Timin -: hour(s) Temperature Source: oral Associated Symptoms: chills, myalgias, headache, nasal congestion, cough Treatments Prior to Arrival: "cold medicine" - Related Data Home Medications Medication Instructions Recorded Confirmed FLUoxetine HCL [PROzac] 10 mg PO DAILY 05/05/18 05/13/18 Previous Rx's Medication Instructions Recorded predniSONE 50 mg PO DAILY #5 tablet 05/25/18 Allergies Allergy/AdvReac Type Severity Reaction Status Date / Time No Known Allergies Allergy Verified 10/31/20 23:05 Review of Systems ROS Statement: Those systems with pertinent positive or pertinent negative responses have been documented in the HPI. ROS Other: All systems not noted in ROS Statement are negative. Constitutional: Reports: fever, chills. Denies: weakness Eyes: Denies: eye pain ENT: Reports: congestion. Denies: ear pain Respiratory: Reports: cough. Denies: dyspnea, wheezes Cardiovascular: Denies: chest pain, palpitations, orthopnea Gastrointestinal: Denies: abdominal pain, nausea, vomiting, diarrhea Genitourinary: Denies: dysuria, frequency, hematuria Musculoskeletal: Reports: myalgia. Denies: back pain Skin: Denies: rash Neurological: Reports: headache. Denies: weakness, numbness, paresthesias Past Medical History Past Medical History: Deep Vein Thrombosis (DVT), Neurologic Disorder, Sleep Apnea/CPAP/BIPAP Additional Past Medical History / Comment(s): hsima DVT, varicose veins, uses cpap, urinary leakage,rt arm carpal tunnel. COVID History of Any Multi-Drug Resistant Organisms: None Reported Past Surgical History: Cholecystectomy, Orthopedic Surgery, Tubal Ligation Additional Past Surgical History / Comment(s): rt knee surgery for torn meniscus, bladder suspension Additional Past Anesthesia/Blood Transfusion Reaction / Comment(s): lt leg goes numb after anesthesia Past Psychological History: Depression Smoking Status: Former smoker Past Alcohol Use History: Rare Past Drug Use History: Marijuana - Past Family History Mother Family Medical History: No Reported History General Exam Limitations: no limitations General appearance: alert, in no apparent distress Head exam: Present: atraumatic, normocephalic Eye exam: Present: normal appearance. Absent: scleral icterus, conjunctival injection ENT exam: Present: normal oropharynx Neck exam: Present: normal inspection Respiratory exam: Present: normal lung sounds bilaterally. Absent: respiratory distress, wheezes, rales, rhonchi, stridor Cardiovascular Exam: Present: regular rate, normal rhythm, normal heart sounds. Absent: systolic murmur, diastolic murmur, rubs, gallop GI/Abdominal exam: Present: soft. Absent: distended, tenderness, guarding, rebound, rigid, mass Extremities exam: Present: normal inspection, normal capillary refill. Absent: pedal edema, calf tenderness Back exam: Present: normal inspection. Absent: CVA tenderness (R), CVA tenderness (L) Neurological exam: Present: alert Skin exam: Present: warm, dry, intact, normal color. Absent: rash Course Vital Signs 10/31/20 23:00 Temperature 99.8 F H Pulse Rate 98 Respiratory 22 Rate Blood Pressure 165/78 O2 Sat by Pulse 95 Oximetry Medical Decision Making - Lab Data Lab Results 10/31/20 10/31/20 10/31/20 Range/Units 23:32 23:39 23:39 Urine Color Light Yellow Urine Appearance Clear (Clear) Urine pH 7.5 (5.0-8.0) Ur Specific [place] 1.011 (1.001-1.035) Urine Protein Negative (Negative) Urine Glucose (UA) Negative (Negative) Urine Ketones Negative (Negative) Urine Blood Negative (Negative) Urine Nitrite Negative (Negative) Urine Bilirubin Negative (Negative) Urine Urobilinogen <2.0 (<2.0) mg/dL Ur Leukocyte Esterase Small H (Negative) Urine RBC <1 (0-5) /hpf Urine WBC 1 (0-5) /hpf Ur Squamous Epith Cells <1 (0-4) /hpf Urine Mucus Rare H (None) /hpf Urine HCG, Qual Not Detected (Not Detectd) Coronavirus (PCR) Not Detected (Not Detectd) Disposition Clinical Impression: Fever, Viral syndrome Disposition: HOME SELF-CARE Condition: Good Instructions (If sedation given, give patient instructions): Fever in Adults (ED) Is patient prescribed a controlled substance at d/c from ED?: No Referrals: Hesham Morales [Primary Care Provider] - 1-2 days
--- NOTE | 2020-11-01 01:19 | XR ---
EXAMINATION TYPE: XR chest 2V DATE OF EXAM: 11/01/2020 COMPARISON: 05/25/2018 HISTORY: Fever TECHNIQUE: 2 views FINDINGS: Heart and mediastinum are normal. Lungs are clear. Diaphragm is normal. Bony thorax appears normal. IMPRESSION: Normal chest. No change.
[2020-11-01 04:12] VITALS: BP 142/78; PULSE 74; RESP 18; TEMP 97.9
== END 2020-11-01 04:12 | disposition home or self-care (01) ==
LOC: EC 22:59
DX: B34.9 Viral infection, unspecified (principal); Z87.891 Personal history of nicotine dependence; Z20.822 Contact with and (suspected) exposure to COVID-19; Z86.16 Personal history of COVID-19
CPT/HCPCS: 71046; 81001; 81025; 87635; 99283

== ENCOUNTER 2020-11-09 16:14 | Emergency (ER) | payer OTHER ==
[2020-11-09 16:36] VITALS: BP 142/80; PULSE 78; RESP 16; TEMP 98.5
[2020-11-09] MEDS ORDERED: IBUPROFEN 600 MG TAB PO STA (17:23)
--- NOTE | 2020-11-09 17:28 | ED ---
Lower Extremity Injury HPI - General Chief Complaint: Extremity Injury, Lower Stated Complaint: R foot pain & Swelling Time Seen by Provider: 11/09/20 17:13 Source: patient, RN notes reviewed, old records reviewed Mode of arrival: wheelchair Limitations: no limitations - History of Present Illness Initial Comments: This is a 40-year-old female that presents to the emergency room with complaints of right ankle pain for one month. She states that she was seen here and had an x-ray done a month ago and there was no fracture however she states that when she walks for a long period of time and foot continues to hurt her. It is relieved with rest. She was told to follow up with orthopedics but she cannot get into them. She states that she never had an injury to the foot. MD Complaint: ankle injury (right) -: month(s) (1) Injury: Ankle: Right Severity scale (1-10): 0 Improves With: rest Worsens With: weight bearing - Related Data Home Medications Medication Instructions Recorded Confirmed FLUoxetine HCL [PROzac] 20 mg PO HS 11/09/20 11/09/20 Fluticasone Nasal Edson [Flonase 1 - 2 spr EA NOSTRIL DAILY PRN 11/09/20 11/09/20 Nasal Edson] Loratadine 10 mg PO HS 11/09/20 11/09/20 Omeprazole 40 mg PO HS 11/09/20 11/09/20 Allergies Allergy/AdvReac Type Severity Reaction Status Date / Time No Known Allergies Allergy Verified 11/09/20 18:41 Review of Systems ROS Statement: Those systems with pertinent positive or pertinent negative responses have been documented in the HPI. ROS Other: All systems not noted in ROS Statement are negative. Past Medical History Past Medical History: Deep Vein Thrombosis (DVT), Neurologic Disorder, Sleep Apnea/CPAP/BIPAP Additional Past Medical History / Comment(s): shima DVT, varicose veins, uses cpap, urinary leakage,rt arm carpal tunnel. COVID History of Any Multi-Drug Resistant Organisms: None Reported Past Surgical History: Cholecystectomy, Orthopedic Surgery, Tubal Ligation Additional Past Surgical History / Comment(s): rt knee surgery for torn meniscus, bladder suspension Additional Past Anesthesia/Blood Transfusion Reaction / Comment(s): lt leg goes numb after anesthesia Past Psychological History: Depression Smoking Status: Former smoker Past Alcohol Use History: Rare Past Drug Use History: Marijuana - Past Family History Mother Family Medical History: No Reported History General Exam Limitations: no limitations General appearance: alert, in no apparent distress Head exam: Present: atraumatic, normocephalic, normal inspection Eye exam: Present: normal appearance, EOMI Neck exam: Present: full ROM Cardiovascular Exam: Present: regular rate Right Foot/Toe exam: Present: full ROM, tenderness. Absent: swelling, abrasion, laceration, ecchymosis Neurovascular tendon exam: Present: no vascular compromise. Absent: abnormal cap refill, extremity cold to touch, pallor Neurological exam: Present: alert, oriented X3 Psychiatric exam: Present: normal affect, normal mood Skin exam: Present: warm, dry, intact, normal color. Absent: rash Course Vital Signs 11/09/20 16:33 Temperature 98.5 F Pulse Rate 78 Respiratory 16 Rate Blood Pressure 142/80 O2 Sat by Pulse 99 Oximetry Medical Decision Making - Medical Decision Making X-ray shows no fracture or malalignment and soft tissue swelling. There is no acute process. She'll be referred to orthopedics for continuation of care. She states that she is able to ambulate and bear weight. She was encouraged to rest ice and elevate and use Motrin for inflammation and pain. Disposition Clinical Impression: Foot pain, right Disposition: HOME SELF-CARE Condition: Good Additional Instructions: Rest, ice, elevate and use Motrin as needed for pain. Follow-up with orthopedics for continuation of care. Is patient prescribed a controlled substance at d/c from ED?: No Referrals: Hesham Morales [Primary Care Provider] - 1-2 days Suraj Crockett MD [STAFF PHYSICIAN] - 1-2 days Time of Disposition: 19:24
--- NOTE | 2020-11-09 19:18 | XR ---
PROCEDURE: XR foot complete RT - 3V DATE AND TIME: 11/09/2020 6:10 PM CLINICAL INDICATION: PHH; pain TECHNIQUE: Department protocol COMPARISON: 10/09/2020 FINDINGS: There is no fracture or malalignment. The soft tissues are unremarkable. IMPRESSION: NO ACUTE PROCESS.
== END 2020-11-09 19:49 | disposition home or self-care (01) ==
LOC: EC 16:14
DX: M25.571 Pain in right ankle and joints of right foot (principal); M79.89 Other specified soft tissue disorders; Z87.891 Personal history of nicotine dependence; Z86.718 Personal history of other venous thrombosis and embolism; X58.XXXA Exposure to other specified factors, initial encounter
CPT/HCPCS: 99283

== ENCOUNTER → 2021-01-31 | Outpatient (CLI) | payer OTHER ==
--- NOTE | 2021-01-31 18:09 | SFUN ---
SLEEP CENTER FOLLOW UP NOTE DATE OF SERVICE: 01/31/2021 41-year-old lady has been followed in Sleep Center for treatment of obstructive sleep apnea-hypopnea syndrome. Patient continued to use her CPAP equipment every night for the whole night. No snoring with the machine. No problems with CPAP. [place] Sleepiness Scale today is 8. She sleeps well. I checked CPAP unit. Range of the pressure 8-19, average 14.1, usage 30/30 nights for more than 4 hours, average 8.7 hours per night, which is perfect. Leak is 26 L/minute is borderline. Apnea-hypopnea index is only 0.7 which is absolutely normal. MEDICATIONS: Fluoxetine 20 mg once a day and medications for acid reflux. Patient does not remember the name. PHYSICAL EXAMINATION: GENERAL: Patient in no distress. BP 126/84, HR 80, RR 15, height 5 feet 6-1/2 inches, weight 305.4 pounds, body mass index 48.4, temperature 97.4, oxygen saturation at room air 99%. Oropharynx: Extremely low position of soft palate, Mallampati 4. NECK: Supple, no JVD. Thyroid is not palpable. LUNGS: Clear to percussion and to auscultation. Good air exchange. No wheezing or rhonchi. HEART: S1, S2 regular. No murmurs, gallops, or rubs. ABDOMEN: Obese. Soft and nontender. Bowel sounds are present. No organomegaly appreciated. EXTREMITIES: No clubbing or cyanosis. AUTOMOTIVE QUALITY MANAGER: Awake, alert, and oriented X3. Cranial nerves 2 to 7 intact. There is no fasciculation or atrophy. noted. No focal deficits observed. IMPRESSION: 1. Severe obstructive sleep apnea-hypopnea syndrome originally apnea-hypopnea index 81.7. The patient demonstrated 100% compliance with treatment. Totally normal respiration on CPAP. 2. Obesity. 3. Status post cholecystectomy. 4. Status post knee surgery for meniscus problems. 5. Status post tubal ligation. PLAN: 1. Patient will continue to use PAP equipment every night for the whole night. 2. Sleep hygiene with regular time in bed for at least 7-1/2 to 8 hours. 3. Precautions related to driving. No driving if feeling sleepiness. 4. I will maintain all necessary prescription for PAP supplies including mask, tube, filters. 5. Watching weight. 6. Follow-up visit in one year or earlier if patient has any problems. Thank you very much for allowing me to participate in the management of your patient. Sincerely, Kojo Gomez MD, PhD, FAASM Diplomat of [place] [employer] Sleep Medicine Board of [place] [employer] Internal Medicine Panel Gluer of [facility] [place] MMTAMARA / KIM: [id number] /
== END | disposition home or self-care (01) ==
LOC: SLEEP 13:51
PROVIDERS: ATTEND Internal Medicine
DX: G47.33 Obstructive sleep apnea (adult) (pediatric) (principal); E66.9 Obesity, unspecified; Z90.49 Acquired absence of other specified parts of digestive tract; Z98.51 Tubal ligation status; Z98.890 Other specified postprocedural states

== ENCOUNTER → 2021-09-04 | Outpatient (CLI) | payer OTHER | END | disposition home or self-care (01) | LOC: LABWHC1 11:55 | PROVIDERS: ATTEND Family Medicine | DX: R73.9 Hyperglycemia, unspecified (principal) | CPT/HCPCS: 36415; 83036 ==

== ENCOUNTER → 2022-01-30 | Outpatient (CLI) | payer OTHER ==
--- NOTE | 2022-01-30 17:21 | P.PN ---
Subjective DATE: 01/30/2022 FOLLOW UP VISIT. Patient with obstructive sleep apnea hypopnea syndrome return to sleep center for follow-up visit. Information from previous visit have been reviewed. Patient is using PAP equipment every night for the whole night, getting PAP supplies in time. The patient does not have significant problems with the mask, PAP unit and humidification. [place] sleepiness scale is slightly increased to 10. I checked information from PAP unit. PAP unit pressure is from 8 to19, average 13.9 cm H2O. Usage is 100 % for more then 4 hours, average 8.9 hours per night. Leak is 21.8 l/m, which is in acceptable range. Apnea Hypopnea Index is 0.6, which is normal. MEDICATIONS:1. Fluoxetine 2. Medication for acid reflux During physical exam: GENERAL: A pleasant patient without any distress. VITAL SIGNS: BP 133/71, HR 76, RR 16, weight 295, temperature 98.4, oxygen saturation at room air 97 % . HEENT: PERRLA, EOMI.low position of soft palate, Mallapati 4 . NECK: Supple. No JVD. LUNGS: Clear to percussion and to auscultation. Good air exchange. No wheezing or rhonchi. HEART: S1, S2 regular. ABDOMEN: Soft and nontender. Obese EXTREMITIES: No clubbing or cyanosis. GOVERNMENT EMPLOYEE: Awake, alert, and oriented x3. No focal deficit. Impressions: 1. Obstructive sleep apnea-hypopnea syndrome. Patient demonstrated great compliance with treatment, benefiting from treatment. 2. Obesity, body mass index 46.2. 3. Status post knee surgery for meniscus problems. 4. Status post cholecystectomy. 5. Status post tubal ligation. Plan: 1. Continue using PAP equipment every night for the whole night. 2. To change air filter at least 1-2 times per month. 3. PAP unit should stay lower then position of the head. 4. Advised patient to remove all remaining water from humidifier canister daily and make it dry after each usage. Refill canister with fresh distilled water before each usage. 5. Sleep hygiene with regular time in bed for at least 8 hours. 6. Precautions related to driving. No driving if feel any sleepiness. 7. I will maintain prescription for PAP supplies including mask, tube, filters. 8. Follow up visit in 6 months or earlier if patient has any problems. 9. Watching and losing weight. Thank you very much for allowing me to participate in the management of your patient. Kojo Gomez MD, PhD, FAASM. Diplomat of [employer], Sleep Medicine Board by [place] [employer] Adjunct English Instructor of [facility] [place]
== END ==
LOC: SLEEP 13:54
PROVIDERS: ATTEND Internal Medicine
DX: G47.33 Obstructive sleep apnea (adult) (pediatric) (principal); E66.9 Obesity, unspecified; Z99.89 Dependence on other enabling machines and devices; Z98.51 Tubal ligation status; Z96.659 Presence of unspecified artificial knee joint; Z87.891 Personal history of nicotine dependence; Z68.42 Body mass index [BMI] 45.0-49.9, adult; Z98.890 Other specified postprocedural states
CPT/HCPCS: 99212

== ENCOUNTER → 2022-10-04 | Outpatient (CLI) | payer OTHER ==
[2022-10-05 01:40] LABS: ALT 40 U/L (8-44); AST 53 U/L (13-35); Albumin 4.1 d/dL (3.8-4.9); Albumin/Globulin Ratio 1.64 Ratio (1.60-3.17); Alkaline Phosphatase 87 U/L (41-126); Blood Urea Nitrogen 10.8 mg/dL (9.0-27.0); Calcium 9.3 mg/dL (8.7-10.3); Carbon Dioxide 25.2 mmol/L (21.6-31.8); Chloride 102 mmol/L (96-109); Chol/HDL Ratio 4.51 Ratio; Globulin 2.5 d/dL (1.6-3.3); Glucose 167 mg/dL (70-110); LDL Cholesterol,Calculated 147.8 mg/dL (0.0-131.0); Potassium 4.9 mmol/L (3.5-5.5); Sodium 139 mmol/L (135-145); Total Bilirubin 0.3 mg/dL (0.3-1.2); Total Protein 6.6 d/dL (6.2-8.2); VLDL Calculation 17.24 mg/dL (5.00-40.00)
[2022-10-05 01:50] LABS: Basophils # (A) 0.06 X 10*3/uL (0.00-0.10); Basophils % (A) 0.6 %; Eosinophils # (A) 0.24 X 10*3/uL (0.04-0.35); Eosinophils % (A) 2.3 %; HCT 43.8 % (37.2-46.3); HGB 14.1 d/dL (12.0-15.0); Lymphocytes # (A) 1.83 X 10*3/uL (0.90-5.00); Lymphocytes % (A) 17.3 %; MCH 27.3 pg (27.0-32.0); MCHC 32.2 d/dL (32.0-37.0); MCV 84.7 FL (80.0-97.0); Mean Platelet Volume 10.3 FL (9.5-12.2); Monocytes # (A) 0.53 X 10*3/uL (0.20-1.00); NRBC Per 100 WBC 0 X 10*3/uL (0.00-0.01); Neutrophils # (A) 7.85 X 10*3/uL (1.80-7.70); Neutrophils % (A) 74.1 %; Platelet Count 277 X 10*3/uL (140-440); RBC 5.17 X 10*6/uL (4.10-5.20); RDW 14.2 % (11.5-14.5); WBC 10.58 X 10*3/uL (4.50-10.00)
--- NOTE | 2022-10-07 11:39 | MM ---
Reason for Exam: Screening (asymptomatic). Baseline mammogram. Patient History: Menarche at age 10. First Full-Term at age 20. Patient has history of breast feeding. Maternal aunt had ovarian cancer. Last menstrual period: 09/20/2022 Risk Values: Rita 5 year model risk: 0.7%. NCI Lifetime model risk: 8.7%. Prior Study Comparison: Patient's first Mammogram. Tissue Density: There are scattered fibroglandular densities. Findings: Analyzed By CAD. There is no suspicious group of microcalcifications or new suspicious mass in either breast. Overall Assessment: Negative, BI-RAD 1 Management: Screening Mammogram of both breasts in 1 year. . Patient should continue monthly self-breast exams. A clinical breast exam by your physician is recommended on an annual basis. This exam should not preclude additional follow-up of suspicious palpable abnormalities. Note on Rita scores and lifetime risk: 1. A Rita score greater than 3% is considered moderate risk. If this is the case, consider specialist referral to assess eligibility for a risk reducing agent. 2. If overall lifetime risk for the development of breast cancer is 20% or higher, the patient may qualify for future screening with alternating mammogram and breast MRI. Electronically signed and approved by: Frankie Walker M.D. Radiologis
== END | disposition home or self-care (01) ==
LOC: RADMAMWWP 09:59
PROVIDERS: ATTEND Family Medicine
DX: Z00.00 Encounter for general adult medical examination without abnormal findings (principal); Z12.31 Encounter for screening mammogram for malignant neoplasm of breast; E11.9 Type 2 diabetes mellitus without complications; Z80.41 Family history of malignant neoplasm of ovary
CPT/HCPCS: 77063; 77067; 80053; 80061; 83036; 84443; 85025

== ENCOUNTER → 2023-01-29 | Outpatient (CLI) | payer OTHER ==
--- NOTE | 2023-01-29 14:21 | P.PN ---
Subjective DATE: 01/29/2023 FOLLOW UP VISIT. Patient with obstructive sleep apnea hypopnea syndrome return to sleep center for follow-up visit. Information from previous visit have been reviewed. Patient is using PAP equipment every night for the whole night, getting PAP supplies in time. The patient does not have significant problems with the mask, PAP unit and humidification. Prospect sleepiness scale is 8, which is normal. Last night patient had episodes of awakenings with gasping for air. I checked information from PAP unit. PAP unit pressure 8-19, average 13.0 cm H2O. Usage is 100 % for more then 4 hours, average 9.5 hours per night. Leak is 13.7 l/m, which is in acceptable range. Apnea Hypopnea Index is 1.2, which is normal. MEDICATIONS:1. Metformin 2. Atorvastatin 3. Fluoxetine 4. Omeprazole During physical exam: GENERAL: A pleasant patient without any distress. VITAL SIGNS: BP 139/77, HR 83, RR 12, weight to 80.2, temperature 97.9, oxygen saturation at room air 98 % . HEENT: PERRLA, EOMI.low position of soft palate, Mallapati 4 . NECK: Supple. No JVD. LUNGS: Clear to percussion and to auscultation. Good air exchange. No wheezing or rhonchi. HEART: S1, S2 regular. ABDOMEN: Soft and nontender.[] EXTREMITIES: No clubbing or cyanosis. WOOLEN TESTER: Awake, alert, and oriented x3. No focal deficit. Impressions: 1. Obstructive sleep apnea-hypopnea syndrome. Patient demonstrated great compliance with treatment, benefiting from treatment. 2. Obesity, BMI 45.1, patient lost 15 pounds comparing with previous visit. 3. Status post knee surgery for meniscus problems. 4. Status post cholecystectomy. 5. Status post tubal ligation. I increased range of the pressure to 8 20 cm of water. Plan: 1. Continue using PAP equipment every night for the whole night. 2. To change air filter at least 1-2 times per month. 3. PAP unit should stay lower then position of the head. 4. Advised patient to remove all remaining water from humidifier canister daily and make it dry after each usage. Refill canister with fresh distilled water before each usage. 5. Sleep hygiene with regular time in bed for at least 8 hours. 6. Precautions related to driving. No driving if feel any sleepiness. 7. I will maintain prescription for PAP supplies including mask, tube, filters. 8. Follow up visit in 6 months or earlier if patient has any problems. 9. Watching and continue losing weight. Thank you very much for allowing me to participate in the management of your patient. Kojo Gomez MD, PhD, FAASM. Diplomat of [place] [employer], Sleep Medicine Board by [place] [employer] Annealing Operator [facility] [place]
== END ==
LOC: 3 N SLEEP 13:57
PROVIDERS: ATTEND Internal Medicine
DX: G47.33 Obstructive sleep apnea (adult) (pediatric) (principal); E66.9 Obesity, unspecified; Z98.890 Other specified postprocedural states; Z90.49 Acquired absence of other specified parts of digestive tract; Z68.42 Body mass index [BMI] 45.0-49.9, adult; Z98.51 Tubal ligation status; Z99.89 Dependence on other enabling machines and devices; Z87.891 Personal history of nicotine dependence
CPT/HCPCS: 99212

== ENCOUNTER 2023-07-19 10:12 | Emergency (ER) | payer OTHER ==
[2023-07-19 10:18] VITALS: RESP 16
--- NOTE | 2023-07-19 11:39 | US ---
EXAMINATION TYPE: US venous doppler duplex LE LT DATE OF EXAM: 07/19/2023 10:34 AM COMPARISON: NONE CLINICAL INDICATION: Female, 43 years old with history of pain; redness in left anterior calf x 3 day s. 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 Not on blood thinners. SIDE PERFORMED: Left TECHNIQUE: The lower extremity deep venous system is examined utilizing real time linear array sonog yolanda with graded compression, doppler sonography and color-flow sonography. VESSELS IMAGED: Common Femoral Vein Deep Femoral Vein Greater Saphenous Vein * Femoral Vein Popliteal Vein Small Saphenous Vein * Proximal Calf Veins (* superficial vessels) Left Leg: No evidence for DVT. Echoes seen in a superficial vein in the left prox anterior lower leg . Grayscale, color doppler, spectral doppler imaging performed of the deep veins of the lower extremiti es. There is normal flow, compressibility, vascular waveforms. IMPRESSION: 1. No evidence for deep vein to most of the left leg. 2. Superficial thrombophlebitis of the area in the leg redness with noncompressible vessel.
--- NOTE | 2023-07-19 11:52 | ED ---
Extremity Problem HPI - General Chief complaint: Extremity Problem,Nontraumatic Stated complaint: L leg red and swelling Time Seen by Provider: 07/19/23 10:15 Source: patient, RN notes reviewed Mode of arrival: ambulatory Limitations: no limitations - History of Present Illness Initial comments: 43-year-old female presents emergency department with chief complaint of left leg pain, swelling and redness. Patient states she had prior DVT from prior knee surgery and trauma states that she denies any blood thinners. She noticed the area of redness and discomfort. Patient denies difficulty breathing no chest pain no other complaints. - Related Data Home Medications Medication Instructions Recorded Confirmed FLUoxetine HCL [PROzac] 20 mg PO HS 11/09/20 04/18/22 Omeprazole 40 mg PO HS 11/09/20 04/18/22 Amoxic-Pot Clav 875-125Mg 1 tab PO BID 04/18/22 04/18/22 [Augmentin 875-125] Previous Rx's Medication Instructions Recorded Diphenox-Atrop 2.5-0.025 mg 1 tab PO 5XD PRN 3 Days #15 tablet 04/18/22 [Lomotil] Ondansetron Odt [Zofran Odt] 4 mg PO Q8HR PRN #15 tab 04/18/22 Allergies Allergy/AdvReac Type Severity Reaction Status Date / Time No Known Allergies Allergy Verified 04/18/22 12:58 Review of Systems ROS Statement: Those systems with pertinent positive or pertinent negative responses have been documented in the HPI. ROS Other: All systems not noted in ROS Statement are negative. Past Medical History Past Medical History: Diabetes Mellitus, Deep Vein Thrombosis (DVT), Neurologic Disorder, Sleep Apnea/CPAP/BIPAP Additional Past Medical History / Comment(s): shima DVT, varicose veins, uses cpap, urinary leakage,rt arm carpal tunnel. COVID History of Any Multi-Drug Resistant Organisms: None Reported Past Surgical History: Cholecystectomy, Orthopedic Surgery, Tubal Ligation Additional Past Surgical History / Comment(s): rt knee surgery for torn meniscus, bladder suspension Additional Past Anesthesia/Blood Transfusion Reaction / Comment(s): lt leg goes numb after anesthesia Past Psychological History: Depression Smoking Status: Former smoker Past Alcohol Use History: Rare Past Drug Use History: Marijuana - Past Family History Mother Family Medical History: No Reported History General Exam Limitations: no limitations General appearance: alert, in no apparent distress Head exam: Present: atraumatic, normocephalic, normal inspection Respiratory exam: Present: normal lung sounds bilaterally. Absent: respiratory distress, wheezes, rales, rhonchi, stridor Cardiovascular Exam: Present: regular rate, normal rhythm, normal heart sounds. Absent: systolic murmur, diastolic murmur, rubs, gallop, clicks Extremities exam: Present: other (Left leg proximal tib-fib region there is an area of erythema, tenderness there is no calf tenderness pedal pulses equal bilaterally no thigh tenderness) Course Vital Signs 07/19/23 10:16 Temperature 98.2 F Pulse Rate 88 Respiratory 16 Rate Blood Pressure 165/88 O2 Sat by Pulse 98 Oximetry Medical Decision Making - Medical Decision Making Was pt. sent in by a medical professional or institution (ARAM Faye, AUGER OPERATOR, urgent care, hospital, or shelter...) When possible be specific @ -No Did you speak to anyone other than the patient for history (EMS, parent, family, police, friend...)? What history was obtained from this source @ -No Did you review nursing and triage notes (agree or disagree)? Why? @ -I reviewed and agree with nursing and triage notes Were old charts reviewed (outside hosp., previous admission, EMS record, old EKG, old radiological studies, urgent care reports/EKG's, shelter records)? Report findings @ -No old charts were reviewed Differential Diagnosis (chest pain, altered mental status, abdominal pain women, abdominal pain men, vaginal bleeding, weakness, fever, dyspnea, syncope, headache, dizziness, GI bleed, back pain, seizure, CVA, palpatations, mental health, musculoskeletal)? @ -Superficial thrombophlebitis, DVT EKG interpreted by me (3pts min.). @ -None X-rays interpreted by me (1pt min.). @ -None done CT interpreted by me (1pt min.). @ -None done U/S interpreted by me (1pt. min.). @ -Ultrasound venous Doppler left leg showing no evidence of DVT there is area of superficial thrombophlebitis What testing was considered but not performed or refused? (CT, X-rays, U/S, labs)? Why? @ -None What meds were considered but not given or refused? Why? @ -None Did you discuss the management of the patient with other professionals (professionals i.e. , PA, AUGER OPERATOR, lab, RT, psych nurse, social work supervisor, broadcast operations technician, teacher, court officer, geriatric case manager)? Give summary @ -No Was smoking cessation discussed for >3mins.? @ -No Was critical care preformed (if so, how long)? @ -No Were there social determinants of health that impacted care today? How? (Home lessness, low income, unemployed, alcoholism, drug addiction, transportation, low edu. Level, literacy, decrease access to med. care, longterm, rehab)? @ -No Was there de-escalation of care discussed even if they declined (Discuss DNR or withdrawal of care, Hospice)? DNR status @ -No What co-morbidities impacted this encounter? (DM, HTN, Smoking, COPD, CAD, Cancer, CVA, ARF, Chemo, Hep., AIDS, mental health diagnosis, sleep apnea, morbid obesity)? @ -None Was patient admitted / discharged? Hospital course, mention meds given and route, prescriptions, significant lab abnormalities, going to OR and other pertinent info. @ -Did charge patient has evidence of superficial thrombophlebitis not within 2 cm of deep vessel patient is discharged with supportive treatment anti- inflammatories and warm compresses. Undiagnosed new problem with uncertain prognosis? @ -No Drug Therapy requiring intensive monitoring for toxicity (Heparin, Nitro, Insulin, Cardizem)? @ -No Were any procedures done? @ -No Diagnosis/symptom? @ -Superficial thrombophlebitis left leg Acute, or Chronic, or Acute on Chronic? @ -Acute Uncomplicated (without systemic symptoms) or Complicated (systemic symptoms)? @ -Uncomplicated Side effects of treatment? @ -No Exacerbation, Progression, or Severe Exacerbation? @ -No Poses a threat to life or bodily function? How? (Chest pain, [place], [place], pneumonia, PE, COPD, DKA, ARF, appy, cholecystitis, CVA, Diverticulitis, Homicidal, Suicidal, threat to staff... and all critical care pts) @ -No Disposition Clinical Impression: Superficial thrombophlebitis of left leg Disposition: HOME SELF-CARE Condition: Stable Instructions (If sedation given, give patient instructions): Superficial Thrombophlebitis (ED) Additional Instructions: Please return to the Emergency Department if symptoms worsen or any other concerns. Is patient prescribed a controlled substance at d/c from ED?: No Referrals: Jayjay Blue MD [Primary Care Provider] - 1-2 days Time of Disposition: 11:52
[2023-07-19 12:08] VITALS: BP 158/78; PULSE 72; TEMP 98
== END 2023-07-19 12:07 | disposition home or self-care (01) ==
LOC: EC 10:12
DX: I80.02 Phlebitis and thrombophlebitis of superficial vessels of left lower extremity (principal); Z86.16 Personal history of COVID-19; Z87.891 Personal history of nicotine dependence
CPT/HCPCS: 99283

== ENCOUNTER 2023-08-04 17:00 | Emergency (ER) | payer SELFPAY ==
[2023-08-04 17:11] VITALS: BP 173/78; PULSE 79; RESP 16; TEMP 98
--- NOTE | 2023-08-04 18:22 | ED ---
Extremity Problem HPI - General Chief complaint: Extremity Problem,Nontraumatic Stated complaint: L leg swelling Time Seen by Provider: 08/04/23 18:20 Source: patient, RN notes reviewed, old records reviewed Mode of arrival: ambulatory Limitations: no limitations - History of Present Illness Initial comments: 43-year-old female presenting to the ER with a chief complaint of left lower extremity pain. Patient reports a remote history of DVTs in her right leg after knee surgery. She states she was seen here on 07-19-2023 and diagnosed with a superficial blood clot of her left calf. She was performing conservative treatments with improvement of pain from superficial clot. She has past couple days she is noticing increasing pain in her posterior knee and distal thigh. She states it is also tender to touch. Denies any traumas or injuries. She states she did recently travel to [place] via car. She denies any fevers, chills, chest pain, shortness of breath or peripheral edema. She is not currently on any blood thinners. - Related Data Home Medications Medication Instructions Recorded Confirmed FLUoxetine HCL [PROzac] 20 mg PO HS 11/09/20 04/18/22 Omeprazole 40 mg PO HS 11/09/20 04/18/22 Amoxic-Pot Clav 875-125Mg 1 tab PO BID 04/18/22 04/18/22 [Augmentin 875-125] Previous Rx's Medication Instructions Recorded Diphenox-Atrop 2.5-0.025 mg 1 tab PO 5XD PRN 3 Days #15 tablet 04/18/22 [Lomotil] Ondansetron Odt [Zofran Odt] 4 mg PO Q8HR PRN #15 tab 04/18/22 Allergies Allergy/AdvReac Type Severity Reaction Status Date / Time No Known Allergies Allergy Verified 08/04/23 17:11 Review of Systems ROS Statement: Those systems with pertinent positive or pertinent negative responses have been documented in the HPI. ROS Other: All systems not noted in ROS Statement are negative. Past Medical History Past Medical History: Diabetes Mellitus, Deep Vein Thrombosis (DVT), Neurologic Disorder, Sleep Apnea/CPAP/BIPAP Additional Past Medical History / Comment(s): shima DVT, varicose veins, uses cpap, urinary leakage,rt arm carpal tunnel. COVID History of Any Multi-Drug Resistant Organisms: None Reported Past Surgical History: Cholecystectomy, Orthopedic Surgery, Tubal Ligation Additional Past Surgical History / Comment(s): rt knee surgery for torn meniscus, bladder suspension Additional Past Anesthesia/Blood Transfusion Reaction / Comment(s): lt leg goes numb after anesthesia Past Psychological History: Depression Smoking Status: Former smoker Past Alcohol Use History: Rare Past Drug Use History: Marijuana - Past Family History Mother Family Medical History: No Reported History General Exam Limitations: no limitations General appearance: alert, in no apparent distress Respiratory exam: Present: normal lung sounds bilaterally. Absent: respiratory distress, wheezes, rales, rhonchi, stridor Cardiovascular Exam: Present: regular rate, normal rhythm, normal heart sounds. Absent: systolic murmur, diastolic murmur, rubs, gallop, clicks Extremities exam: Present: normal inspection, full ROM, tenderness (Distal left thigh, warm to touch. Varicose veins present on left 2+ bilateral dorsalis pedis pulse. No edema bilaterally.), normal capillary refill. Absent: pedal edema, joint swelling, calf tenderness Skin exam: Present: warm, dry, intact, normal color. Absent: rash Course Vital Signs 08/04/23 17:08 Temperature 98 F Pulse Rate 79 Respiratory 16 Rate Blood Pressure 173/78 O2 Sat by Pulse 97 Oximetry - Reevaluation(s) Reevaluation #1: 08/04/23 21:[address] Lehman, offset plate preparation supervisor vascular, who advised on conservative treatment and outpatient follow-up. Medical Decision Making - Medical Decision Making Was pt. sent in by a medical professional or institution (, PA, TEACHER INSTRUMENTAL, urgent care, hospital, or group home...) When possible be specific @ -No Did you speak to anyone other than the patient for history (EMS, parent, family, police, friend...)? What history was obtained from this source @ -No Did you review nursing and triage notes (agree or disagree)? Why? @ -I reviewed and agree with nursing and triage notes Were old charts reviewed (outside hosp., previous admission, EMS record, old EKG, old radiological studies, urgent care reports/EKG's, group home records)? Report findings @ -Yes I reviewed ER visit from 07-19-2023. Patient diagnosed with a superficial thrombophlebitis and discharged with conservative treatment. Differential Diagnosis (chest pain, altered mental status, abdominal pain women, abdominal pain men, vaginal bleeding, weakness, fever, dyspnea, syncope, headache, dizziness, GI bleed, back pain, seizure, CVA, palpatations, mental health, musculoskeletal)? @ -M differential musculoskeletal EKG interpreted by me (3pts min.). @ -None X-rays interpreted by me (1pt min.). @ -None done CT interpreted by me (1pt min.). @ -None done U/S interpreted by me (1pt. min.). @ -Ultrasound venous Doppler left lower extremity significant for a tubular structure concerning of a thrombosed superficial vein in area of patient's pain. What testing was considered but not performed or refused? (CT, X-rays, U/S, labs)? Why? @ -None What meds were considered but not given or refused? Why? @ -None Did you discuss the management of the patient with other professionals (professionals i.e. , PA, TEACHER INSTRUMENTAL, lab, RT, psych nurse, psychiatric social worker, dairy husbandry teacher, teacher, global chief creative officer, leather case finisher)? Give summary @ -Yes, case discussed with on-call vascular, Dr. Lehman, who advises on NSAIDs, compression, rest and heat. She also advised outpatient follow-up with herself in office. Was smoking cessation discussed for >3mins.? @ -No Was critical care preformed (if so, how long)? @ -No Were there social determinants of health that impacted care today? How? (Homelessness, low income, unemployed, alcoholism, drug addiction, transportation, low edu. Level, literacy, decrease access to med. care, assisted, rehab)? @ -No Was there de-escalation of care discussed even if they declined (Discuss DNR or withdrawal of care, Hospice)? DNR status @ -No What co-morbidities impacted this encounter? (DM, HTN, Smoking, COPD, CAD, Cancer, CVA, ARF, Chemo, Hep., AIDS, mental health diagnosis, sleep apnea, morbid obesity)? @ -History of DVT, obese Was patient admitted / discharged? Hospital course, mention meds given and route, prescriptions, significant lab abnormalities, going to OR and other pertinent info. @ -Discharge. 43-year-old female presented to the ER with a chief complaint of left leg pain. Patient seen here on 07-19-2023 for similar complaint and diagnosed with a superficial thrombophlebitis and discharged home. She is for the past couple days she has been having increasing pain in her distal thigh. Exam remarkable for tenderness and redness to left distal thigh. Left lower extremity neurovascular intact. Ultrasound completed to rule out DVT remarkable for a tubular structure in the leg over the area of patient concern possibly representing thrombosed superficial vein. No evidence of DVT. As patient was seen recently and diagnosed with a superficial thrombophlebitis of left calf and has now returned with a more proximal thrombosed vein of left leg case discussed with on-call vascular, Dr. Lehman, due to concern of clot movement. She advised on conservative treatment including heat, compression and NSAIDs with outpatient follow-up in office. Results discussed with patient, all questions answered. Return parameters discussed. Patient discharged stable condition with follow-up to Dr. Lehman, referral given. Patient verbally expressed understanding agreed with care plan. Case discussed with ED attending, Dr. Way. Undiagnosed new problem with uncertain prognosis? @ -No Drug Therapy requiring intensive monitoring for toxicity (Heparin, Nitro, Insulin, Cardizem)? @ -No Were any procedures done? @ -No Diagnosis/symptom? @ -Thrombosed superficial vein Acute, or Chronic, or Acute on Chronic? @ -Acute Uncomplicated (without systemic symptoms) or Complicated (systemic symptoms)? @ -Uncomplicated Side effects of treatment? @ -No Exacerbation, Progression, or Severe Exacerbation? @ -No Poses a threat to life or bodily function? How? (Chest pain, [place], [place], pneumonia, PE, COPD, DKA, ARF, appy, cholecystitis, CVA, Diverticulitis, Homicidal, Suicidal, threat to staff... and all critical care pts) @ -No - Radiology Data Radiology results: report reviewed, image reviewed Disposition Clinical Impression: Superficial thrombophlebitis of left leg Disposition: HOME SELF-CARE Condition: Stable Instructions (If sedation given, give patient instructions): Superficial Thrombophlebitis (ED), Venous Insufficiency (DC) Additional Instructions: Please follow-up with Dr. Lehman in office. Return to the ER for any new or worsening concerns. Is patient prescribed a controlled substance at d/c from ED?: No Referrals: Jayjay Blue MD [Primary Care Provider] - 1-2 days Lynn Lehman DO [STAFF PHYSICIAN] - 1-2 days Time of Disposition: 19:28
--- NOTE | 2023-08-04 18:35 | US ---
EXAMINATION TYPE: US venous doppler duplex LE LT DATE OF EXAM: 08/04/2023 5:54 PM COMPARISON: 07/19/2023 CLINICAL INDICATION: Female, 43 years old with history of pain and swelling in calf/behind knee; Elaina ent states pain since 07/18, states hx of superficial clots. Patient not on blood thinners. HX DVT in r ight leg SIDE PERFORMED: Left TECHNIQUE: The lower extremity deep venous system is examined utilizing real time linear array sonog yolanda with graded compression, doppler sonography and color-flow sonography. VESSELS IMAGED: Common Femoral Vein Deep Femoral Vein Greater Saphenous Vein * Femoral Vein Popliteal Vein Small Saphenous Vein * Proximal Calf Veins (* superficial vessels) Left Leg: Negative for DVT. Grayscale, color doppler, spectral doppler imaging performed of the deep veins of the lower extremities. There is normal flow, compressibility, vascular waveforms. There is a 2.1 x 2.2 x 1.5cm complex area seen at patients AOC (posterior thigh). IMPRESSION: 1. No evidence for deep vein thrombosis. 2. Tubular structure in the leg in the area of patient's concern possibly representing thrombosed amaro perficial vein.
== END 2023-08-04 20:13 | disposition home or self-care (01) ==
LOC: EC 17:00
DX: I80.02 Phlebitis and thrombophlebitis of superficial vessels of left lower extremity (principal); Z87.891 Personal history of nicotine dependence; Z90.49 Acquired absence of other specified parts of digestive tract
CPT/HCPCS: 99283